=== PATIENT | female | born 1965 | race Caucasian/White ===

== ENCOUNTER 2018-09-17 09:01 | Emergency (ER) | payer OTHER ==
--- NOTE | 2018-09-17 09:30 | EDPHY ---
H & P Stated Complaint: L abd/ flank pain Time Seen by Provider: 09/17/18 09:29 HPI/ROS: HPI: This is a 53-year-old female who presents with Chief Complaint: Left abdominal, flank pain Location: Left abdominal, flank Quality: Pain Duration: Upon waking up this morning approximately 1 hr Signs and Symptoms: no fever, +nausea, no vomiting, no hematemesis, no blood in stool, no abdominal bloating, no diarrhea, no back pain, no urinary symptoms, no vaginal bleeding/discharge, no indigestion, no chest pain, no shortness of breath Timing: Rapid onset, constant Severity: 12/29 Context: Patient is generally healthy, history of kidney stone approximately 3 years ago that was able to be passed on his own and did not require surgical intervention, presents with waking up this morning approximately 1 hr prior to arrival with rapid onset of left flank pain that radiates into her left lower quadrant and groin area. She reports that she has nausea but no vomiting, fever , diarrhea, abdominal bloating. Patient reports that this pain feels similar to when she had a kidney stone before. Yesterday she returned home from the [place] where she hike down into the [place]. at bedside believes that she may be dehydrated. Modifying Factors: None Comment: ROS: A comprehensive 10 system review of systems is otherwise negative aside from elements mentioned in the history of present illness. MEDICAL/SURGICAL/SOCIAL HISTORY: Medical history: History of kidney stones. Surgical history: Denies Social history: Never smoked. . Has children. Family history noncontributory. CONSTITUTIONAL: Moderate distress, nontoxic-appearing, middle-aged white female , awake and alert HEENT: Atraumatic and normocephalic, PERRL, EOMI. Nares patent; no rhinorrhea; no nasal mucosal edema. Tympanic membranes clear. Oropharynx clear, no exudate and moist pink mucosa. Airway patent. No lymphadenopathy. No meningismus. Cardiovascular: Normal S1/S2, regular rate, regular rhythm, without murmur rub or gallop. PULMONARY/CHEST: Symmetrical and nontender. Clear to auscultation bilaterally. Good air movement. No accessory muscle usage. ABDOMEN: Soft, nondistended, left lower quadrant moderate tenderness, left flank moderate tenderness, no rebound,+ guarding, no peritoneal signs, no masses or organomegaly. No CVAT. EXTREMITIES: 2/2 pulses, strength 5/5, no deformities, no clubbing, no cyanosis or edema. NEUROLOGICAL: no focal neuro deficits. GCS 15. SKIN: Warm and dry, no erythema. no rash. Good capillary refill. Source: Patient Exam Limitations: No limitations - Personal History Current Tetanus Diphtheria and Acellular Pertussis (TDAP): Yes - Medical/Surgical History Hx Asthma: No Hx Chronic Respiratory Disease: No Hx Diabetes: No Hx Cardiac Disease: No Hx Renal Disease: No Hx Cirrhosis: No Hx Alcoholism: No Hx HIV/AIDS: No Hx Splenectomy or Spleen Trauma: No Other PMH: kidney stones - Social History Smoking Status: Never smoked Constitutional: Initial Vital Signs Temperature (C) 36.6 C 09/17/18 09:07 Heart Rate 60 09/17/18 09:07 Respiratory Rate 16 09/17/18 09:07 Blood Pressure 115/53 L 09/17/18 09:07 O2 Sat (%) 97 09/17/18 09:07 O2 Delivery Mode Nasal Cannula O2 (L/minute) 2 Allergies/Adverse Reactions: No Known Allergies Allergy (Unverified 09/17/18 09:10) Home Medications: Medication Instructions Recorded Promethazine HCl 25 mg PO Q6 PRN #10 tablet 09/17/18 Tamsulosin HCl [Flomax 0.4 MG (*)] 0.4 mg PO DAILY #10 cap 09/17/18 oxyCODONE/APAP 5/325 [Percocet 1 - 2 tab PO Q4H PRN #20 tab 09/17/18 5/325 (*)] Medical Decision Making - Diagnostics Imaging Results: Imaging Impressions Abdomen/Pelvis CT 09/17/18 09:36 Impression: 1. 4 mm calculus in the proximal left ureter. 2. Nephrolithiasis of the right kidney. 3. See above report for additional findings. Results called and discussed with JUAN RAMON Hargrove on 09/17/2018 at 10:29 a.m. ED Course/Re-evaluation: Vital signs reviewed and stable upon arrival. No systemic signs. IV access, laboratory studies, urinalysis, CT abdomen and pelvis scan ordered Given 1 L normal saline, IV morphine 4 mg, IV Toradol 30 mg, IV promethazine 12.5 mg 0949: Urinalysis is hazy in color, 1+ blood 0955: Laboratory studies reviewed. No leukocytosis, no anemia, no platelet dysfunction. Potassium 3.7, creatinine 0.8 1020: Per Dr. Jc Hoffman, CT abdomen and pelvis scan shows: 4 mm left ureteral proximal stone with mild hydronephrosis and multiple right nephrolithiasis. 1120: Reassessed patient who reports adequate pain control and request to be discharged home with pain control, antiemetics, Flomax and Neurology follow-up. This patient was seen under the supervision of my primary supervising physician. I evaluated care for this patient independently. Differential Diagnosis: Flank pain including but not limited to musculoskeletal causes, kidney stone, pyelonephritis, shingles, and intra-abdominal causes such as diverticulitis and appendicitis. - Data Points Laboratory Results: Laboratory Results 09/17/18 09:25 09/17/18 09:25 09/17/18 09/17/18 09/17/18 09:25 09:25 09:25 WBC 4.36 10^3/uL 10^3/uL (3.80-9.50) RBC 4.83 10^6/uL 10^6/uL (4.18-5.33) Hgb 14.2 g/dL g/dL (12.6-16.3) Hct 43.2 % % (38.0-47.0) MCV 89.4 fL fL (81.5-99.8) MCH 29.4 pg pg (27.9-34.1) MCHC 32.9 g/dL g/dL (32.4-36.7) RDW 12.2 % % (11.5-15.2) Plt Count 196 10^3/uL 10^3/uL (150-400) MPV 10.9 fL fL (8.7-11.7) Neut % (Auto) 63.9 % % (39.3-74.2) Lymph % (Auto) 25.0 % % (15.0-45.0) [place] % (Auto) 8.7 % % (4.5-13.0) Eos % (Auto) 1.1 % % (0.6-7.6) Baso % (Auto) 1.1 % % (0.3-1.7) Nucleat RBC Rel Count 0.0 % % (0.0-0.2) Absolute Neuts (auto) 2.78 10^3/uL 10^3/uL (1.70-6.50) Absolute Lymphs (auto) 1.09 10^3/uL 10^3/uL (1.00-3.00) Absolute Monos (auto) 0.38 10^3/uL 10^3/uL (0.30-0.80) Absolute Eos (auto) 0.05 10^3/uL 10^3/uL (0.03-0.40) Absolute Basos (auto) 0.05 10^3/uL 10^3/uL (0.02-0.10) Absolute Nucleated RBC 0.00 10^3/uL 10^3/uL (0-0.01) Immature Gran % 0.2 % % (0.0-1.1) Immature Gran # 0.01 10^3/uL 10^3/uL (0.00-0.10) Sodium 139 mEq/L mEq/L (135-145) Potassium 3.7 mEq/L mEq/L (3.5-5.2) Chloride 102 mEq/L mEq/L (97-110) Carbon Dioxide 27 mEq/l mEq/l (22-31) Anion Gap 10 mEq/L mEq/L (6-14) BUN 12 mg/dL mg/dL (7-23) Creatinine 0.8 mg/dL mg/dL (0.6-1.0) Estimated GFR > 60 Glucose 104 mg/dL H mg/dL (70-100) Calcium 9.0 mg/dL mg/dL (8.5-10.4) Urine Color YELLOW Urine Appearance HAZY Urine pH 7.0 (5.0-7.5) Ur Specific [place] 1.016 (1.002-1.030) Urine Protein NEGATIVE (NEGATIVE) Urine Ketones NEGATIVE (NEGATIVE) Urine Blood 1+ H (NEGATIVE) Urine Nitrate NEGATIVE (NEGATIVE) Urine Bilirubin NEGATIVE (NEGATIVE) Urine Urobilinogen 2.0 EU H EU (0.2-1.0) Ur Leukocyte Esterase NEGATIVE (NEGATIVE) Urine RBC 50-182 /hpf H /hpf (0-3) Urine WBC 1-3 /hpf /hpf (0-3) Ur Epithelial Cells 1+ /lpf /lpf (NONE-1+) Urine Mucus TRACE /lpf /lpf (NONE-1+) Urine Glucose NEGATIVE (NEGATIVE) Medications Given: Discontinued Medications Sodium Chloride (Ns) 1,000 mls @ 0 mls/hr IV ONCE ONE; Wide Open PRN Reason: Protocol Stop: 09/17/18 09:36 Last Admin: 09/17/18 09:50 Dose: 1,000 mls Ketorolac Tromethamine (Toradol) 30 mg IVP EDNOW ONE Stop: 09/17/18 09:36 Last Admin: 09/17/18 09:51 Dose: 30 mg Morphine Sulfate (Morphine) 4 mg IVP EDNOW ONE Stop: 09/17/18 09:37 Last Admin: 09/17/18 09:50 Dose: 4 mg Promethazine HCl (Phenergan) 12.5 mg IVP ONCE ONE Stop: 09/17/18 09:37 Last Admin: 09/17/18 09:51 Dose: 12.5 mg Tamsulosin HCl (Flomax) 0.4 mg PO EDNOW ONE Stop: 09/17/18 10:24 Last Admin: 09/17/18 10:32 Dose: 0.4 mg Departure - Departure Disposition: Home, Routine, Self-Care Clinical Impression: Ureterolithiasis, Renal colic on left side Condition: Good Instructions: Renal Colic (ED), Ureteral Stones (ED) Additional Instructions: Consume a minimum of 8-10 glasses of water or electrolyte fluid replacement drinks that include Gatorade, Powerade, Pedialyte. Take Phenergan 1 tab every 4 hours as needed for nausea, vomiting. Take Tylenol 650 mg every 4 hours and/or Ibuprofen 600 mg every 8 hours with food as needed for pain. Use Percocet every 6 hours as needed for severe/break through pain. Do not use Tylenol and Percocet concomitantly. Take Flomax daily until the stone passes. Establish care with Urology in the next 1-2 weeks. Referrals: THOMAS WHITAKER [Primary Care Provider] - As per Instructions Ben Sharpe MD [Medical Doctor] - As per Instructions Prescriptions: oxyCODONE/APAP 5/325 [Percocet 5/325 (*)] 1 - 2 tab PO Q4H PRN #20 tab PRN Reason: Pain, Severe Promethazine HCl 25 mg PO Q6 PRN #10 tablet PRN Reason: Nausea/Vomiting, Use 1st Tamsulosin HCl [Flomax 0.4 MG (*)] 0.4 mg PO DAILY #10 cap
[2018-09-17] MEDS ORDERED: NS 1,000 ML IV ONE (09:35)
[2018-09-17] MEDS ORDERED: KETOROLAC 30 MG/1 ML SDV IVP ONE (09:35)
[2018-09-17] MEDS ORDERED: PROMETHAZINE HCL 25 MG/ML INJ IVP ONE (09:36)
[2018-09-17 09:46] LABS: PLATELET COUNT 196 10^3/uL (150-400)
[2018-09-17] MEDS ORDERED: TAMSULOSIN HCL 0.4 MG CAP PO ONE (10:23)
[2018-09-17 10:28] VITALS: BP 117/70
== END 2018-09-17 11:22 | disposition home or self-care (01) ==
DX: N20.1 Calculus of ureter (principal); N23 Unspecified renal colic; E86.9 Volume depletion, unspecified
CPT/HCPCS: 96374; J1885; J2270; J2550

== ENCOUNTER 2018-09-19 16:29 | Emergency (ER) | payer OTHER ==
[2018-09-19] MEDS ORDERED: KETOROLAC 30 MG/1 ML SDV ONE (16:41)
[2018-09-19] MEDS ORDERED: NS 1,000 ML IV ONE ×2 (16:42→18:08)
[2018-09-19] MEDS ORDERED: KETOROLAC 15 MG/1 ML SDV IVP ONE (16:43)
--- NOTE | 2018-09-19 16:52 | EDPHY ---
HPI/HX/ROS/PE/MDM Narrative: CHIEF COMPLAINT: Kidney stone HISTORY OF PRESENT ILLNESS: The patient is a 53 y/o female complaining of a recurrence of symptoms from her kidney stone. She was seen 2 days ago and diagnosed with a 4mm kidney stone in the proximal left ureter. She improved and passed some small pieces of stone. In the past few hours, her pain, nausea, and vomiting returned and she developed a tactile fever. She reports the pain is spasmodic in quality. She denies any recent cold or illness, or any other associated symptoms. She denies history of abdominal surgeries. No chills, chest pain, shortness of breath, palpitations diarrhea, headache, lightheadedness. REVIEW OF SYSTEMS: A comprehensive 10 system review of systems is otherwise negative aside from elements mentioned in the history of present illness and medical decision making PAST MEDICAL HISTORY: Prior history of kidney stones. SOCIAL HISTORY: Lives in [place], , at bedside,employed by [employer] VITAL SIGNS: Reviewed by me GENERAL: Well-developed, well-nourished, in no respiratory distress. Appears uncomfortable. Reporting left lower quadrant discomfort. HEENT: Atraumatic. Eyes: No icterus, no injection. Mouth: moist mucous membranes. No erythema or lesions. Neck: supple with no adenopathy. LUNGS: Clear to auscultation bilaterally, no wheezes, rhonchi or rales. CARDIAC: Regular rate and rhythm, no rubs, murmurs or gallops. ABDOMEN: Tenderness in the left lower quadrant. Soft, nondistended, bowel sounds normal. BACK: No CVA tenderness. EXTREMITIES: No trauma. No edema. Range of motion is normal throughout. NEURO: Alert and oriented, grossly nonfocal. SKIN: Warm and dry, no rash. PSYCHIATRIC: Normal mentation, no agitation. ED Course: Study: CT of the abdomen Indication: Abdominal pain, elevated creatinine Results: CT scan of the abdomen was obtained. The results of the study are: dilated left ureter, left hydronephrosis secondary to stone in the distal left ureter The study was read by the radiologist, Dr. Hoffman. I viewed the images myself on the PACS system. The patient presents for worsened kidney stone symptoms. 2 days ago, she was diagnosed with a kidney stone. She started to feel better before pain, nausea, and vomiting returned and she developed a subjective fever. Plan for CBC, basic metabolic panel, and urinalysis. Patient received IV fluids, and Toradol. Toradol was administered prior to creatinine from today being reported at 1.3. Prior creatinine 2 days ago 0.8. 17:21 - Plan for CT to evaluate kidney stone progress as well as any evidence of pyelonephritis or renal calices rupture. 17:40 - The CT shows dilated left ureter and left hydronephrosis. The stone is at the UVJ. 18:00 - I reassessed the patient and found her condition improved. I discussed the results of her workup with her. Urinalysis demonstrates trace bacteria. Patient received 1 g of ceftriaxone. Will ask the patient to take ibuprofen for anti-inflammatory affects, stay well hydrated, continue her Flomax, and will place the patient on Keflex. I feel she is safe to return home at this point. Urine has been sent for culture. She has improved after fluids. She was also given a dose of Flexeril for muscle relaxation. MDM: Differential diagnosis of the patient's left lower quadrant pain was considered including but not limited to musculoskeletal causes, kidney stone, pyelonephritis, infected stone. - Data Points Imaging Results: CT Abd/Pelvis Impression: Distal left ureteral calculus at the ureterovesical junction with associated left- sided obstructive uropathy. Results called and discussed with Dr. Jeni Sánchez on September 19, 2018 at 1739 hours. Dictated By: Jc Hoffman MD Imaging: Discussed imaging studies w/ call center recruiter Radiologist Laboratory Results: Laboratory Results 09/19/18 16:45 09/19/18 16:45 Medications Given: Discontinued Medications Cyclobenzaprine HCl (Flexeril) 10 mg PO EDNOW ONE Stop: 09/19/18 16:54 Last Admin: 09/19/18 17:32 Dose: 10 mg Sodium Chloride (Ns) 1,000 mls @ 0 mls/hr IV ONCE ONE; Wide Open PRN Reason: Protocol Stop: 09/19/18 16:43 Last Admin: 09/19/18 16:47 Dose: 1,000 mls Ceftriaxone Sodium/Dextrose (Rocephin 1 Gm (Premix)) 50 mls @ 100 mls/hr IV EDNOW ONE PRN Reason: Protocol Stop: 09/19/18 18:23 Last Admin: 09/19/18 18:02 Dose: 50 mls Sodium Chloride (Ns) 1,000 mls @ 0 mls/hr IV ONCE ONE; Wide Open PRN Reason: Protocol Stop: 09/19/18 18:09 Last Admin: 09/19/18 18:09 Dose: 1,000 mls Ketorolac Tromethamine (Toradol) 15 mg IVP EDNOW ONE Stop: 09/19/18 16:44 Last Admin: 09/19/18 16:46 Dose: 15 mg Ondansetron HCl (Zofran Odt 4 Mg Prepack#2) 1 btl TAKEHOME EDNOW ONE Stop: 09/19/18 18:13 Last Admin: 09/19/18 18:31 Dose: 1 btl Oxycodone/Acetaminophen (Percocet 5/325mg Prepack#4) 1 btl TAKEHOME EDNOW ONE Stop: 09/19/18 18:13 Last Admin: 09/19/18 18:31 Dose: 1 btl General Time Seen by Provider: 09/19/18 16:38 Initial Vital Signs: Initial Vital Signs Temperature (C) 36.7 C 09/19/18 16:32 Heart Rate 72 09/19/18 16:32 Respiratory Rate 17 09/19/18 16:32 Blood Pressure 111/65 09/19/18 16:32 O2 Sat (%) 94 09/19/18 16:32 O2 Delivery Mode Room Air Allergies/Adverse Reactions: No Known Allergies Allergy (Verified 09/19/18 16:32) Home Medications: Medication Instructions Recorded Promethazine HCl 25 mg PO Q6 PRN #10 tablet 09/17/18 Tamsulosin HCl [Flomax 0.4 MG (*)] 0.4 mg PO DAILY #10 cap 09/17/18 oxyCODONE/APAP 5/325 [Percocet 1 - 2 tab PO Q4H PRN #20 tab 09/17/18 5/325 (*)] Cephalexin [Keflex (*)] 500 mg PO TID #21 cap 09/19/18 Departure - Departure Disposition: Home, Routine, Self-Care Clinical Impression: Renal colic on left side, r/o urinary tract infection Condition: Good Instructions: Cephalexin (By mouth), Oxycodone/Acetaminophen (By mouth), Ondansetron (By mouth), Renal Colic (ED) Additional Instructions: Take ibuprofen 600 mg every 6-8 hours as needed for moderate pain. This will also help with inflammation. Reassure you stay well-hydrated when taking ibuprofen. You may use the ibuprofen as you baseline pain control. Use Zofran as needed for nausea. Take Percocet as needed for severe pain. Continue to take the Flomax as directed. You been given a prescription of Keflex 500 mg. Please take this as directed starting tomorrow. Followup with urology as directed below. Strain urine. Return to the emergency department if you have worsening pain, fevers, persistent vomiting, or other concerns. Referrals: NONE *PRIMARY CARE P,. [Primary Care Provider] - As per Instructions Ben Sharpe MD [Medical Doctor] - As per Instructions Prescriptions: Cephalexin [Keflex (*)] 500 mg PO TID #21 cap Report Scribed for: Jeni Sánchez Report Scribed by: Rachelle Denise Date of Report: 09/19/18 Time of Report: 17:19 Physician Review and Approval Statement: Portions of this note were transcribed by a medical billing representative. I personally performed a history, physical exam, medical decision making, and confirmed accuracy of information the transcribed note.
[2018-09-19] MEDS ORDERED: CYCLOBENZAPRINE 10 MG TAB PO ONE (16:53)
[2018-09-19 17:01] LABS: PLATELET COUNT 161 10^3/uL (150-400)
[2018-09-19] MEDS ORDERED: OXYCODONE/APAP 5/325MG PREPACK#4 BTL TAKEHOME ONE (18:12)
[2018-09-19] MEDS ORDERED: ONDANSETRON 4MG PREPACK#2 BTL TAKEHOME ONE (18:12)
[2018-09-19 18:37] VITALS: BP 102/61
== END 2018-09-19 19:01 | disposition home or self-care (01) ==
DX: N13.0 Hydronephrosis with ureteropelvic junction obstruction (principal); N23 Unspecified renal colic; E86.9 Volume depletion, unspecified
CPT/HCPCS: 96365; J0696; J1885